=== PATIENT | female | born 1985 | race Caucasian/White ===

== ENCOUNTER 2022-06-28 12:16 | Day surgery (SDC) | payer OTHER, SELFPAY ==
[2022-06-20 10:23] VITALS: BMI 30.7
--- NOTE | 2022-06-28 07:24 | PM.HPGS ---
History of Present Illness History of Present Illness Consent: Risks, benefits, and alternatives have been discussed and questions answered. Patient agrees to proceed with procedure. Chief complaint: Dysphagia Narrative: Jesi Lamb is a 36 year old female Referred for investigation of dysphagia.Food gets caught in upper chest Review of Systems Review of Systems: All systems reviewed & are unremarkable except as noted in HPI and below PMFSH Past Medical History Medical History (Updated 06/28/22 @ 13:41 by Itz Schmidt MD) HTN (hypertension) Social History Social History Smoking status: Never smoker Alcohol intake: unknown Substance use type: does not use Living arrangements: with family Spiritual care concerns: No Meds Home Medications and Allergies Home Medications Medication Instructions Recorded Confirmed Type lisinopril 20 mg tablet 20 mg PO DAILY 06/20/22 06/28/22 History sertraline 50 mg tablet 50 mg PO DAILY 06/20/22 06/28/22 History Allergies Allergy/AdvReac Type Severity Reaction Status Date / Time No Known Allergies Allergy Verified 06/28/22 12:55 Exam Const: General: alert Orientation/consciousness: patient oriented x3 Resp: Auscultation: clear to auscultation bilaterally Cardio: Rhythm: regular rhythm GI: GI Palp: Yes Soft to palpation and No Tenderness to palpation present (GI) Neuro: General: patient oriented x3 Assessment and Plan Assessment and plan (1) Dysphagia: Code(s): R13.10 - Dysphagia, unspecified Status: Acute Assessment and Plan: EGD with possible biopsy or dilatation or cautery.
[2022-06-28] MEDS: LACTATED RINGERS 1,000 ML 150 ML IV CONT (13:06)
--- NOTE | 2022-06-28 13:41 | WPDANESEPPF ---
Anes - Initial Pre Proc Eval Procedure: Operation Date: 06/28/22 14:00 Proposed Procedures p Esophagogastroduodenoscopy - Adam Cantu MD Date/Time: 06/28/22 13:41 Surgeon: Adam Cantu MD Pre Op Diagnosis: Dysphagia Patient Data Age: 36 Gender: F Height: 1.68 m Weight: 91.8 kg Allergies Allergy/AdvReac Type Severity Reaction Status Date / Time No Known Allergies Allergy Verified 06/28/22 12:55 Home Medications Medication Instructions Recorded Confirmed Type lisinopril 20 mg tablet 20 mg PO DAILY 06/20/22 06/28/22 History sertraline 50 mg tablet 50 mg PO DAILY 06/20/22 06/28/22 History Patient hx anesthesia problems: none Family hx anesthesia problems: none Results Review: All pre-operative results and documents have been reviewed as part of the pre-operative evaluation. [facility] Past Medical History Medical History (Updated 06/28/22 @ 13:41 by Itz Schmidt MD) HTN (hypertension) Social History Social History Smoking status: Never smoker Alcohol intake: unknown Substance use type: does not use Living arrangements: with family Spiritual care concerns: No Anes - Eval Final PreProcedure Day of Procedure 06/28/22 13:41 Patient weight: obese Heart: regular rate and rhythm Lungs: clear to auscultation Airway: Mallampati scale class II Last oral intake: >/= 8 hours ASA classification: II Emergent: no Anesthetic plan: proceed Anesthesia type and monitoring: general GIVS and standard monitoring Results Review: All pre-operative results and documents have been reviewed as part of the pre-operative evaluation. Informed Consent: The patient's anesthetic plan and its attendant risks and benefits were discussed with the patient/family/POA. Questions were solicited and answers provided to the satisfaction of the patient/family/POA.
[2022-06-28 14:20] VITALS: BP 132/95; PULSE 91; RESP 16; O2SAT 100
[2022-06-28 14:30] VITALS: BP 134/92; PULSE 84; RESP 16; O2SAT 100
--- NOTE | 2022-06-28 14:31 | WPDANESPN ---
Anes - Prog Note Post-Op Date/Time: 06/28/22 14:31 Cardiovascular status: normal Respiratory status: normal Airway patency: baseline Mental status: baseline Post-Op hydration status: normal Pain Score (VAS): 0/10 I/O: Intake & Output 06/27/22 06/28/22 06/28/22 23:59 07:59 15:59 Intake Total 400 Balance 400 Patient Feedback: Patient satisfied with anesthetic care.
--- NOTE | 2022-06-28 14:36 | SUR.PHASEII ---
1430; PT AWAKE AND ALERT. DRINKING A SODA. DENIES PAIN. MOTHER AT BEDSIDE. 1445; PT STATES SHE CAN FEEL SOME BURNING SENSATION TO STOMACH AREA. INSTRUCTIONS GIVEN. SOFT FOOD TODAY. PT VERBALIZED UNDERSTANDING. PANTOPRAZOLE SENT TO PHARMACY PER DR IRIZARRY
[2022-06-28 14:40] VITALS: BP 153/92; PULSE 85; RESP 16
== END 2022-06-28 14:55 | disposition home or self-care (01) ==
PROVIDERS: PCP Nurse Practitioner Adult Health; Visit Provider Internal Medicine Gastroenterology
PROC: 0DJ08ZZ Inspection of Upper Intestinal Tract, Via Natural or Artificial Opening Endoscopic (ICD-10-PCS; CPT 43235; principal; 2022-06-28 14:00)
DX: R13.10 Dysphagia, unspecified (principal)
CPT/HCPCS: 43249; 43239

== ENCOUNTER 2022-06-28 13:00 | Outpatient (NON) | payer OTHER, SELFPAY | END 2022-06-28 13:01 | disposition home or self-care (01) | PROVIDERS: PCP Nurse Practitioner Adult Health; Visit Provider Internal Medicine Gastroenterology | DX: K20.90 Esophagitis, unspecified without bleeding (principal) | CPT/HCPCS: 88305 ==